=== PATIENT | female | born 1940 | race Caucasian/White ===

== ENCOUNTER → 2017-04-04 | Outpatient (CLI) | payer MEDICARE ==
[~2017-04-04] MED LIST: ACET-1600 PO; ALPR0.5T6 PO; ASPI-496 PO; CALC-471 PO; CELE200C PO; D MANNOSE PO; D-MANNOSE PO; EXEM25TA2 PO; GABA300C10 PO; GLYC15DR2 EACHEYE; HYDR-882 PO; LACT1CAP35 PO; MIRA50TA PO; MULT-658 PO; OXYC1TAB9 PO; PHEN-494 PO; SOLI5TAB PO; SUMA100T4 PO; TRAM50TA2 PO; VIT1CAPS9 PO; ZOLP-413 PO; ZOLP10TA PO
== END | disposition home or self-care (01) ==
LOC: CFH 12:42
PROVIDERS: ATTEND Internal Medicine Hematology & Oncology
DX: Z13.820 Encounter for screening for osteoporosis (principal); C50.911 Malignant neoplasm of unspecified site of right female breast; M85.88 Other specified disorders of bone density and structure, other site
CPT/HCPCS: 77080

== ENCOUNTER 2020-05-12 15:02 | Outpatient (CLI) | payer MEDICARE, OTHER ==
[~2020-05-12 15:02] MED LIST changes: +HYDR-3653 PO; -HYDR-882 PO; +OXYC-432 PO; -OXYC1TAB9 PO; -PHEN-494 PO; +PHEN-583 PO; -SOLI5TAB PO; +SOLI5TAB2 PO
== END 2020-05-12 23:59 | disposition home or self-care (01) ==
LOC: RAD 15:02
PROVIDERS: ATTEND Physician Assistant
DX: R51 Headache (principal); R42 Dizziness and giddiness; M79.89 Other specified soft tissue disorders; W18.30XA Fall on same level, unspecified, initial encounter
CPT/HCPCS: 70450; 70486